=== PATIENT | male | born 1955 | race Caucasian/White ===

== ENCOUNTER 2018-03-20 06:15 | Day surgery (SDC) | payer OTHER ==
[~2018-03-20] VITALS: Ht 162.6 cm; Wt 76.9 kg
[2018-03-20] VITALS (12 sets, daily range): BP systolic 100–157; BP diastolic 61–90; PULSE 56–78; RESP 18–28; Ht 162.6 cm; Wt 76.9 kg
[~2018-03-20 06:15] MED LIST: CYCLOPENTOLATE/PHENYLEPH 2 ML OPH OPER SCH; DICLOFENAC 0.1% 2.5 ML OPH OPER SCH; MOXIFLOXACIN 0.5% 3 ML OPH OPER SCH; SOD CHLORIDE 0.9% 1,000 ML IV SCH; TROPICAMIDE 1% 15 ML OPH OPER SCH
[2018-03-20] MEDS ORDERED: LIDOCAINE 4% (MPF) 5 ML INJ ONE (06:44)
[2018-03-20] MEDS ORDERED: CARBACHOL 0.01% 1.5 ML OPH INJ ONE (06:46)
[2018-03-20] MEDS ORDERED: TETRACAINE 0.5% 4 ML OPH ONE (06:46)
[2018-03-20] MEDS ORDERED: GENTAMICIN 80 MG INJ ONE (06:46)
[2018-03-20] MEDS ORDERED: CEFAZOLIN 1 GM INJ ONE (06:46)
[2018-03-20] MEDS ORDERED: EPINEPHrine 1 MG INJ ONE (06:47)
[2018-03-20] MEDS ORDERED: DEXAMETHASONE 4 MG/ML 1 ML INJ ONE (06:47)
[2018-03-20] MEDS ORDERED: BENA20TA4 PO (06:57)
[2018-03-20] MEDS ORDERED: ATOR20TA38 PO (06:57)
[2018-03-20] MEDS ORDERED: MITOMYCIN 5 MG INJ OP ONE (07:00)
[2018-03-20] MEDS ORDERED: PROPOFOL 200 MG INJ ONE (07:00)
[2018-03-20] MEDS ORDERED: LIDOCAINE 2% (SDV) 5 ML INJ ONE (07:00)
[2018-03-20] MEDS ORDERED: BALANCED SALT SOLN 15 ML OPH IRRIG ONE (07:00)
[2018-03-20] MEDS ORDERED: BUPIVACAINE 0.5% (SDV) 30 ML INJ ONE (07:13)
--- NOTE | 2018-03-20 07:26 | PREAC ---
Date/Time of Note Date/Time of Note DATE: 03/20/18 TIME: 07:24 Anesthesia Eval and Record Evaluation Time Pre-Procedure Interview DATE: 03/20/18 TIME: 07:24 Age 62 Sex male NPO: 8 hrs Preoperative diagnosis LEFT EYE PTERYGIUM Planned procedure EXCISION LEFT EYE PTERYGIUM Past Medical History Past Medical History: Includes Cardio: HTN Surgery & Anesthesia Issues No known issue Meds Anticoagulation: No Beta Laura within 24 hr: No Reason Beta Laura not given: Pt. not on B-Laura Reported Medications Atorvastatin Calcium* (Atorvastatin Calcium*) 20 Mg Tablet, 20 MG PO QHS, #30 TAB 03/20/18 Benazepril Hcl* (Benazepril Hcl*) 20 Mg Tablet, 20 MG PO DAILY, #30 TAB 03/20/18 Current Medications Diclofenac Sodium (Voltaren 0.1%) 1 drop Q5 MIN X 3 OPER Last administered on 03/20/18at 06:44; Admin Dose 1 DROP; Start 03/20/18 at 06:00 Tropicamide (Mydriacyl 1%) 1 drop Q5 MIN X3 OPER Last administered on 03/20/18at 06:44; Admin Dose 1 DROP; Start 03/20/18 at 06:00 Moxifloxacin HCl (Vigamox) 1 drop Q5 MIN X 3 OPER Last administered on 03/20/18at 06:44; Admin Dose 1 DROP; Start 03/20/18 at 06:00 Cyclopentolate/ Phenylephrine (Cyclomydril Oph 2 ml) 1 drop Q5 MIN X 3 OPER Last administered on 03/20/18at 06:44; Admin Dose 1 DROP; Start 03/20/18 at 06:00 Sodium Chloride 1,000 ml @ 25 mls/hr Q24H IV Last administered on 03/20/18at 06:43; Admin Dose 25 MLS/HR; Start 03/20/18 at 06:00 Lidocaine/ Epinephrine (Xylocaine 2%/ Epi Mpf(Sdv)) 20 ml ONCE ONCE INJ ; Start 03/20/18 at 07:30; Stop 03/20/18 at 07:31 Meds reviewed: Yes Allergies Coded Allergies: No Known Allergy (Unverified , 03/20/18) Allergies Reviewed: Yes Labs/Studies Labs Reviewed: Reviewed by anesthesiologist test: N/A Studies: ECG (NSR), CXR (NAPD) Pre-procedure Exam Last vitals Vital Signs Date Temp Pulse Resp B/P (MAP) Pulse Ox O2 O2 Flow FiO2 Time Delivery Rate 03/20/18 97.8 78 18 157/87 99 Room Air 06:52 (110) Airway: Adequate mouth opening, Adequate thyromental dist Mallampati: Mallampati II Teeth: Normal Lung: Normal Heart: Normal ASA Physical Status ASA physical status: 2 Emergency: None Planned Anesthetic General/MAC: MAC Planned Pain Management Parenteral pain med, Local by surgeon Pre-operative Attestations Prior to commencing anesthesia and surgery, the patient was re-evaluated, there was verification of: *The patient's identity *The results of appropriate recent lab work and preoperative vital signs *The above evaluation not changing prior to induction *Anesthetic plan, risk benefits, alternative and complications discussed with patient/family; questions answered; patient/family understands, accepts and wishes to proceed. Heladio Peterson M.D. Mar 20, 2018 07:25
[2018-03-20] MEDS ORDERED: DIPHENHYDRAMINE 50 MG INJ IV PRN (07:30)
[2018-03-20] MEDS ORDERED: FENTAnyl 50 MCG/ML VIAL IV PRN ×3 (07:30)
[2018-03-20] MEDS ORDERED: LIDOCAINE 2%/EPI MPF (SDV) 20 ML VIAL INJ ONE (07:30)
[2018-03-20] MEDS ORDERED: ONDANSETRON 4 MG INJ IV PRN (07:30)
[2018-03-20] MEDS ORDERED: ALBUTEROL 0.083% (NEB) 2.5 MG/3 ML AMP HHN PRN (07:30)
[2018-03-20] MEDS ORDERED: LABETALOL HCL 20MG INJ IV PRN (07:30)
[2018-03-20] MEDS ORDERED: MEPERIDINE 25 MG INJ IV PRN (07:30)
[2018-03-20] MEDS ORDERED: HYDROmorphONE 1 MG/5 ML IV SYRINGE IV PRN ×3 (07:30)
[2018-03-20] MEDS ORDERED: MIDAZOLAM 1 MG/ML 2 ML INJ IV PRN (07:30)
[2018-03-20] MEDS ORDERED: hydrALAzine 20 MG INJ IV PRN (07:30)
[2018-03-20] MEDS ORDERED: IPRATROPIUM (NEB) 0.5 MG/2.5 ML AMP HHN PRN (07:30)
[2018-03-20] MEDS ORDERED: EPHEDrine SULFATE 50 MG/5 ML SYG IV PRN (07:30)
[2018-03-20] MEDS ORDERED: OXYCODONE/ACETAMINOPHEN (5/325) TAB PO PRN ×2 (07:30)
[2018-03-20] MEDS ORDERED: TRIMETHOBENZAMIDE 100 MG/ML VIAL IM PRN (07:30)
[2018-03-20] MEDS ORDERED: FENTAnyl 50 MCG/ML VIAL ONE (07:36)
[2018-03-20] MEDS ORDERED: ONDANSETRON 4 MG INJ ONE (07:36)
[2018-03-20] MEDS ORDERED: TOBRAMYCIN/DEXAMETH 3.5 GM OPH OINT ONE (08:02)
--- NOTE | 2018-03-20 08:10 | NUR ---
nursing rr RECEIVED PT FROM OR NOT IN ANY DISTRESS .PT HAS DSG TO LEFT EYE CLEAN AND DRY .IV TO L AC G20 NEEDLE WITH LR INFUSING WELL .
--- NOTE | 2018-03-20 08:12 | SIPON ---
Date/Time of Note Date/Time of Note DATE: 03/20/18 TIME: 08:11 Operative Report Preoperative Diagnosis Pterygium os Postoperative Diagnosis same Operation/Procedure Performed pterygium excision with mitomycin c application and rotating conjunctival flap os Surgeon pavel islas travel assistant benny Anesthesia: MAC Estimated blood loss: none Transfusion Required none Specimen pterygium Grafts/Implants none Complications none PAVEL ISLAS MD Mar 20, 2018 08:12
--- NOTE | 2018-03-20 08:26 | PAC ---
Date/Time of Note Date/Time of Note DATE: 03/20/18 TIME: 08:25 Post-Anesthesia Notes Post-Anesthesia Note Last documented vital signs Vital Signs Date Temp Pulse Resp B/P (MAP) Pulse Ox O2 O2 Flow FiO2 Time Delivery Rate 03/20/18 97.8 78 18 157/87 99 Room Air 06:52 (110) Activity: WNL Respiratory function: WNL Cardiovascular function: WNL Mental status: Baseline Pain reasonably controlled: Yes Hydration appropriate: Yes Nausea/Vomiting absent: Yes Heladio Peterson M.D. Mar 20, 2018 08:26
--- NOTE | 2018-03-20 08:55 | OPR ---
DATE OF OPERATION: 03/20/2018 PREOPERATIVE DIAGNOSIS: Pterygium, left eye. POSTOPERATIVE DIAGNOSIS: Pterygium, left eye. OPERATION PERFORMED: Pterygium excision with mitomycin C 0.3% application and rotating conjunctival graft, left eye. Anesthesia: Dr. Peterson. DESCRIPTION OF OPERATION: The patient brought to the eye operating room on a gurney, positioned appr opriately, attached to electrocardiogram monitor and given oxygen via nasal cannula. After the patie nt was prepped and draped in the usual sterile manner. A speculum was inserted between the lids of t he left eye. After some intravenous sedation was administered, the patient received lidocaine 2% wit h epinephrine given in a subconjunctival injection beneath the bed of the pterygium using [employer] scis sors. The conjunctival side of the pterygium was incised down to bare sclera dissecting subconjuncti yesica tissue to the corneoscleral limbus. Using a curved blade, this was then dissected off the surfac e of the cornea and submitted for gross pathology. After this was done, hemostasis was obtained by m eans of pressure and cauterization to the scleral blood vessels. After this had been done, the corne al bed of the pterygium was polished using a veronica tipped bur until a smooth surface was obtained. After this was completed, a Weck cell sponge impregnated with mitomycin 0.3% was placed on bare scle ra and left in place for 1 minute's time. Following this, copious irrigation was performed with mihir nced salt solution for an additional minute. When that had been completed, a conjunctival grafting w as prepared by dissecting the conjunctiva off the superior limbal insertion and creating a tongue-lik e flap that was brought back to the conjunctival gap on the nasal side. The flap was attached to adj acent conjunctiva using 2 interrupted 0 Vicryl sutures. After this had been completed, it was noted that hemostasis was present. The speculum was removed. TobraDex ointment was placed on the eye and then a pressure patch was applied. The patient then left the operating room in satisfactory conditio n. Dictated By: PAVEL WEBB/MANNY Conf#: [id number] DID#: [id number] CC: PAVEL ISLAS MD;*EndCC*
--- NOTE | 2018-03-20 09:06 | NUR ---
TRANSFER PT TRANSFER TO [facility] IN STABLE CONDITION CARE PROVIDED PER [facility]AND[facility].
--- NOTE | 2018-03-20 09:33 | NUR ---
DRESSING DRY AND INTACT, TOLERATING PO FLUIDS, HOME CARE INSTRUCTIONS WAS GIVEN TO DAUGHTER, SEND HOME STABLE.
--- NOTE | 2018-03-21 07:53 | PREOPHP ---
DATE OF ADMISSION: 03/20/2018 HISTORY OF PRESENT ILLNESS: This 62-year-old patient is admitted for elective pterygium excision of the left eye. The patient has had irritation caused by the pterygium over the past year. The patien t also has had a history of decreased vision in the left eye. Systemic history is positive for hyper tension, hypercholesterolemia. CURRENT MEDICATIONS: 1. Atorvastatin. 2. Benazepril. ALLERGIES: THERE ARE NO KNOWN ALLERGIES. PHYSICAL EXAMINATION: The visual acuity is 20/60 in the right eye and 20/200 in the left eye. Slit lamp examination reveals a nasal pterygium extending into the pupillary access in the right eye and s zak the left eye. Applanation tonometry is 15 mmHg. Examination of the retina reveals the presenc e of a branch retinal vein occlusion in the superotemporal quadrant of the retina with the presence o f bleeding and exudates. The patient is scheduled to see a retinal solar consultant to determine whether t reatment is needed for that in the near future. DIAGNOSIS: Nasal pterygium, left eye. PLAN: Pterygium excision with mitomycin C and conjunctival graft, left eye. The risks of surgery an d the alternatives have been discussed with the patient as well as the potential for recurrence of pt erygium growth. The patient understands this and agrees to proceed with surgery in hopes of achievin g greater comfort and also greater vision with removal of the pterygium, left eye. Dictated By: PAVEL WEBB/MANNY Conf#: [id number] DID#: [id number]
== END 2018-03-20 09:35 | disposition home or self-care (01) ==
LOC: SDS 06:15
PROVIDERS: ATTEND Ophthalmology
DX: H11.002 Unspecified pterygium of left eye (principal); I10 Essential (primary) hypertension
CPT/HCPCS: 65426; J0171; J2405; J3010; J9280; J0690; J1100; J1580